=== PATIENT | female | born 1935 | race Caucasian/White ===

== ENCOUNTER 2017-01-13 21:41 | Emergency (ER) | payer MEDICARE, OTHER ==
[~2017-01-13] VITALS: Ht 162.6 cm; Wt 70.8 kg
[2017-01-13 22:40] LABS: BASO % 1 % (0-3); EOS # 0.1 x10^3/uL (0.0-0.7); EOS % 2 % (0-3); HEMATOCRIT 38.5 % (36.0-47.0); HEMOGLOBIN 13.4 g/dL (12.0-15.5); LYMPH # 1.4 x10^3/uL (1.0-4.8); LYMPH % 29 % (24-48); MEAN CORPUSCULAR HEMOGLOBIN 32 pg (25-35); MEAN CORPUSCULAR HGB CONC 35 g/dL (31-37); MEAN CORPUSCULAR VOLUME 90 fL (79-100); MONO # 0.4 x10^3/uL (0.0-1.1); MONO % 7 % (0-9); NEUT % 61 % (31-73); PLATELET COUNT 179 x10^3/uL (140-400); RED BLOOD COUNT 4.26 x10^6/uL (3.50-5.40); RED CELL DISTRIBUTION WIDTH 12.8 % (11.5-14.5); WHITE BLOOD COUNT 4.8 x10^3/uL (4.0-11.0)
[2017-01-13 23:00] LABS: ALBUMIN 3.7 g/dL (3.4-5.0); ALBUMIN/GLOBULIN RATIO 1.3 (1.0-1.7); CALCIUM 9.4 mg/dL (8.5-10.1); CREATININE 0.6 mg/dL (0.6-1.0); GFR 96.4; TOTAL BILIRUBIN 0.6 mg/dL (0.2-1.0); TOTAL PROTEIN 6.6 g/dL (6.4-8.2)
[2017-01-13 23:27] VITALS: BP 148/87
--- NOTE | 2017-01-13 23:35 | RAD ---
INDICATION: Leg pain COMPARISON: None. TECHNIQUE: Grayscale, color and doppler ultrasound images were obtained of the left lower extremity venous vasculature. LEFT: No thrombus identified in the common femoral vein, femoral vein, popliteal vein or visualized calf veins. IMPRESSION: 1. No thrombus identified in deep venous system of the left lower extremity. Electronically signed by: Mitch Jang MD (01/13/2017 11:31 PM) [facility]
--- NOTE | 2017-01-13 23:47 | PHYS DOC ---
Past History Past Medical History: Hypertension Alcohol Use: None Drug Use: None Adult General Chief Complaint Chief Complaint: HYPERTENSION HPI HPI Patient is a 81 year old female who presents with hypertension. The patient states she experienced palpitations this morning while walking to her car after taoism. She checked her blood pressure & it was elevated in the 160s systolic. She felt anxious & was worried that she might be having an SD so she took aspirin 162 mg & continued to check her blood pressure frequently throughout the day. She states she is compliant with losartan but prefers to take hydrochlorothiazide every other day rather than daily as prescribed by her doctor because her legs are infrequently swollen. She denies headache, vision changes, chest pain, shortness of breath, extremity numbness/weakness. She reports chronic left knee pain secondary to osteoarthritis & has been told that she probably needs joint replacement. She has been using voltaren cream which minimally helps. She thought she had some increased pain over the past few days , including posterior knee pain & calf pain. Denies swelling. She recently traveled by car from [place] to visit her daughter here. She states she is planning to stay here through the end of the year but doesn't have a doctor locally. Review of Systems Review of Systems Constitutional: Denies fever or chills Eyes: Denies change in visual acuity HENT: Denies nasal congestion or sore throat Respiratory: Denies cough or shortness of breath Cardiovascular: Reports palpitations, Denies chest pain or edema GI: Denies abdominal pain, nausea, vomiting, bloody stools or diarrhea : Denies dysuria or hematuria Musculoskeletal: Denies back pain, reports knee & calf pain. Integument: Denies rash or skin lesions Neurologic: Denies headache, focal weakness or sensory changes Allergies Allergies Allergies Coded Allergies Type Severity Reaction Last Updated Verified No Known Drug Allergies 01/13/17 No Physical Exam Physical Exam Constitutional: Well developed, well nourished, anxious HENT: Normocephalic, atraumatic, bilateral external ears normal, oropharynx moist, nose normal. Eyes: PERRLA, EOMI, conjunctiva normal, no discharge. Neck: supple, no stridor. Cardiovascular: RRR, no murmurs, no edema. Lungs & Thorax: LCTAB, no wheezing, no respiratory distress. Abdomen: soft, nontender, nondistended. Skin: Warm, dry, no erythema, no rash. Back: No tenderness. Extremities: LLE minimal calf tenderness without swelling, no focal bony knee tenderness, dp/pt 2+, sensation intact to foot. Neurologic: Alert and oriented X 3, CN2-12 grossly intact, symmetric strength/ sensation to upper & lower extremities, no focal deficits noted. Psychologic: anxious Current Patient Data Vital Signs Vital Signs Date Time Temp Pulse Resp B/P (MAP) Pulse Ox O2 Delivery O2 Flow Rate FiO2 01/13/17 23:27 148/87 (107) 01/13/17 21:45 98.0 74 20 99 Room Air Lab Results Laboratory Tests Test 01/13/17 22:20 White Blood Count 4.8 x10^3/uL (4.0-11.0) Red Blood Count 4.26 x10^6/uL (3.50-5.40) Hemoglobin 13.4 g/dL (12.0-15.5) Hematocrit 38.5 % (36.0-47.0) Mean Corpuscular Volume 90 fL (79-100) Mean Corpuscular Hemoglobin 32 pg (25-35) Mean Corpuscular Hemoglobin Concent 35 g/dL (31-37) Red Cell Distribution Width 12.8 % (11.5-14.5) Platelet Count 179 x10^3/uL (140-400) Neutrophils (%) (Auto) 61 % (31-73) Lymphocytes (%) (Auto) 29 % (24-48) Monocytes (%) (Auto) 7 % (0-9) Eosinophils (%) (Auto) 2 % (0-3) Basophils (%) (Auto) 1 % (0-3) Neutrophils # (Auto) 3.0 x10^3uL (1.8-7.7) Lymphocytes # (Auto) 1.4 x10^3/uL (1.0-4.8) Monocytes # (Auto) 0.4 x10^3/uL (0.0-1.1) Eosinophils # (Auto) 0.1 x10^3/uL (0.0-0.7) Basophils # (Auto) 0.0 x10^3/uL (0.0-0.2) Sodium Level 139 mmol/L (136-145) Potassium Level 4.0 mmol/L (3.5-5.1) Chloride Level 104 mmol/L (98-107) Carbon Dioxide Level 30 mmol/L (21-32) Anion Gap 5 (6-14) L Blood Urea Nitrogen 19 mg/dL (7-20) Creatinine 0.6 mg/dL (0.6-1.0) Estimated GFR (Cockcroft-Gault) 96.4 BUN/Creatinine Ratio 32 (6-20) H Glucose Level 111 mg/dL (70-99) H Calcium Level 9.4 mg/dL (8.5-10.1) Total Bilirubin 0.6 mg/dL (0.2-1.0) Aspartate Amino Transferase (AST) 25 U/L (15-37) Alanine Aminotransferase (ALT) 25 U/L (14-59) Alkaline Phosphatase 74 U/L (46-116) Troponin I Quantitative < 0.017 ng/mL (0-0.055) JY-Wso-K-Type Natriuretic Peptide 170 pg/mL (0-449) Total Protein 6.6 g/dL (6.4-8.2) Albumin 3.7 g/dL (3.4-5.0) Albumin/Globulin Ratio 1.3 (1.0-1.7) EKG EKG [] Radiology/Procedures Radiology/Procedures PROCEDURE: VENOUS LOWER EXTREMITY LEFT INDICATION: Leg pain COMPARISON: None. TECHNIQUE: Grayscale, color and doppler ultrasound images were obtained of the left lower extremity venous vasculature. LEFT: No thrombus identified in the common femoral vein, femoral vein, popliteal vein or visualized calf veins. IMPRESSION: 1. No thrombus identified in deep venous system of the left lower extremity. Electronically signed by: Mahesh Jang MD (01/13/2017 11:31 PM) [facility] DICTATED AND SIGNED BY: MAHESH JANG MD DATE: 01/13/17 2569 [] Course & Med Decision Making Course & Med Decision Making Pertinent Labs and Imaging studies reviewed. (See chart for details) The patient presents with elevated blood pressure. She is asymptomatic but had some chest palpitations about 12 hours ago. She has no complaints at this time but appears very anxious & is checking blood pressure frequently. It is elevated in 160s/70s. Obtained labs, EKG, venous US of LLE. No significant abnormality & her blood pressure improved to 148/87. She remained asymptomatic. Discussed at length with patient & her daughter. Would not recommend any acute changes in her meds at this time, but did encourage her to take meds exactly as prescribed including HCTZ which she has been taking every other day rather than daily. Not necessary to check blood pressure so frequently at home as I suspect this is increasing anxiety & therefore she is seeing higher blood pressure readings. Would only check if having symptoms of some sort, in which case would recommend seeing a doctor anyway. Could be helpful to check once daily or even every other day to document in a diary for PCP. Encouraged her to follow up with primary care within the next week for further evaluation; her daughter believes she can be seen by her own primary care. Come back for severe headache, chest pain, shortness of breath, focal neuro deficit, any otherwise worsening condition. Discharged home in stable condition. [] Dragon Disclaimer Dragon Disclaimer This chart was dictated in whole or in part using Voice Recognition software in a busy, high-work load, and often noisy Emergency Department environment. It may contain unintended and wholly unrecognized errors or omissions. Departure Departure: Impression: Primary Impression: Hypertension Disposition: 01 HOME, SELF-CARE Condition: STABLE Referrals: NON,STAFF (PCP) Patient Instructions: Hypertension, [id number] Additional Instructions: You were seen in the emergency department today for high blood pressure. Your tests here did not show any serious abnormality, & you do not have a blood clot in your leg. Please take all medications as prescribed, including daily hydrochlorothiazide. No need to check blood pressure frequently unless you are having severe headache or chest pain - in which case you need to see a doctor anyway. it would be okay to check maybe once a day or every other day in order to give your doctor a blood pressure diary. Please follow up with primary care within the next week. Come back for severe chest pain or shortness of breath, severe headache, any otherwise worsening condition. Problem Qualifiers Primary Impression: Hypertension Hypertension type: unspecified Qualified Codes: I10 - Essential (primary) hypertension VALENTINE JAUREGUI MD Jan 13, 2017 23:47
--- NOTE | 2017-01-14 01:56 | EKG ---
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
== END 2017-01-13 23:55 | disposition home or self-care (01) ==
LOC: ER 21:41
DX: I10 Essential (primary) hypertension (principal); G89.29 Other chronic pain
CPT/HCPCS: 36415; 80053; 83880; 84484; 85025; 93005; 93971; 99285-25

== ENCOUNTER 2020-03-02 16:10 | Emergency (ER) | payer MEDICARE, OTHER ==
[~2020-03-02] VITALS: Ht 162.6 cm; Wt 66.3 kg
[2020-03-02] MEDS ORDERED: ASPIRIN 325 MG TABLET PO ONE (16:30)
--- NOTE | 2020-03-02 16:42 | PHYS DOC ---
Past History Past Medical History: High Cholesterol, Hypertension Additional Past Medical Histor: DVT LLE Past Surgical History: Hysterectomy, Knee Replacement, Oophorectomy Smoking: Non-smoker Alcohol Use: Occasionally Drug Use: None General Adult EDM: Chief Complaint: CHEST WALL PAIN HPI: HPI: Patient is an 84 year old female who presents with chest wall pain. She was talking on the phone at noon today when she experienced 1 min of a quick centrally located chest pain. Pain is reported a 1-2/10, no radiation. She applied voltaren topical gel and took 325mg of tylenol right away. Pain did not return, not currently experiencing pain. She has had pains like this before but they are normally more peripherally located and occur while she is active. She does report a history of balance or dizziness that occurs when she stands up too quickly, but that did not occur with todays chest pain. No history of falls or loss of consciousness. Full cardiac workup in [place], [place] with EKG, echo, stress test showing no abnormalities. History of LLE blood clot 2 years ago, was put on blood thinner for 1 month. Review of Systems: Review of Systems: Constitutional: Denies fever or chills Eyes: Denies redness or eye pain HENT: Denies nasal congestion or sore throat Respiratory: Denies cough or shortness of breath Cardiovascular: Denies palpitations, Reports central chest wall pain GI: Denies abdominal pain, nausea, or vomiting : Denies dysuria or hematuria Musculoskeletal: Denies back pain or joint pain Integument: Denies rash or skin lesions Neurologic: Denies headache, focal weakness or sensory changes Complete systems were reviewed and found to be within normal limits, except as documented in this note. Current Medications: Current Meds: Current Medications Medications (Trade) Dose Ordered Sig/[facility] Start Time Stop Time Status Last Admin Dose Admin Aspirin (Neo Aspirin) 325 mg 1X ONCE 03/02/20 16:30 03/02/20 16:31 DC Allergies: Allergies: Allergies Coded Allergies Type Severity Reaction Last Updated Verified No Known Drug Allergies 03/02/20 No Physical Exam: PE: Constitutional: Well developed, well nourished, no acute distress, non-toxic appearance HENT: Normocephalic, atraumatic Eyes: PERRL, EOMI, conjunctiva normal, no discharge Neck: Normal range of motion, no tenderness, supple Cardiovascular: No tenderness upon palpation of the chest wall, capillary refill 2 sec Lungs & Thorax: No respiratory distress, equal chest rise and fall Abdomen: Soft, no tenderness Skin: Warm, dry, no erythema, no rash Back: No tenderness, no CVA tenderness Extremities: No tenderness, ROM intact, no edema Neurologic: Alert and oriented X 3, normal motor function, normal sensory function, no focal deficits noted Psychologic: Affect normal, judgment normal Current Patient Data: Vital Signs: Vital Signs Date Time Temp Pulse Resp B/P (MAP) Pulse Ox O2 Delivery O2 Flow Rate FiO2 03/02/20 16:19 98.2 70 17 149/66 (93) 97 Room Air EKG: EKG: @16:20, normal sinus rhythm, no ST segment elevations, QRS 80ms, QT/QTc 392ms/431ms Radiology/Procedures: Radiology/Procedures: PROCEDURE: PORTABLE CHEST 1V PORTABLE CHEST 1V History: Reason: chest pain / Spl. Instructions: / History: Comparison: None. Findings: Linear right basilar opacity, likely atelectasis. No consolidation or pleural effusion. Normal heart size. No pneumothorax. Impression: 1. Linear right basilar opacity, likely atelectasis. Electronically signed by: Lambert Rodrigues DO (03/02/2020 4:49 PM) [facility] Heart Score: HEART Score for Chest Pain: HEART Score for Chest Pain Response (Comments) Value History Slighlty/Non-Suspicious 0 ECG Normal 0 Age > 65 2 Risk Factors 1 or 2 Risk Factors 1 Troponin < Normal Limit 0 Total 3 Risk Factors: Risk Factors: DM, Current or recent (<one month) smoker, HTN, HLP, family history of CAD, obesity. Risk Scores: Score 0 - 3: 2.5% MACE over next 6 weeks - Discharge Home Score 4 - 6: 20.3% MACE over next 6 weeks - Admit for Clinical Observation Score 7 - 10: 72.7% MACE over next 6 weeks - Early Invasive Strategies Course & Med Decision Making: Course & Med Decision Making Pertinent Labs and Imaging studies reviewed. (See chart for details) Patient is an 84 year old female presenting with chest wall pain. Pain was very quick with resolution following 325mg tylenol and application of voltaren gel. Pain has not returned and she is currently comfortable. She has had an extensive cardiac workup with EKG, echo, and stress test performed 1-2 years prior with no abnormalities found. Low suspicion of cardiac pathology, likely musculoskeletal pain. Previous history of LLE DVT. EKG and chest xray ordered. Labs pending. Timed troponins performed at 16:40 and 18:10. D-dimer pending. Dragon Disclaimer: Arelyon Disclaimer: This electronic medical record was generated, in whole or in part, using a voice recognition dictation system. Departure Departure: Impression: Primary Impression: Chest pain Qualified Codes: R07.9 - Chest pain, unspecified Disposition: 01 DC HOME SELF CARE/HOMELESS Condition: STABLE Referrals: FELICIANO SCHULZ MD (PCP) HIREN HESS MD Patient Instructions: Chest Pain (Nonspecific), [id number] MADONNA FITCH DO Mar 02, 2020 16:42
[2020-03-02 16:51] LABS: BASO % 1 % (0-3); EOS # 0.1 x10^3/uL (0.0-0.7); EOS % 3 % (0-3); HEMATOCRIT 40.8 % (36.0-47.0); HEMOGLOBIN 13.6 g/dL (12.0-15.5); LYMPH % 22 % (24-48); MEAN CORPUSCULAR HEMOGLOBIN 31 pg (25-35); MEAN CORPUSCULAR HGB CONC 33 g/dL (31-37); MEAN CORPUSCULAR VOLUME 94 fL (79-100); MONO # 0.3 x10^3/uL (0.0-1.1); MONO % 7 % (0-9); NEUT % 68 % (31-73); PLATELET COUNT 178 x10^3/uL (140-400); RED BLOOD COUNT 4.34 x10^6/uL (3.50-5.40); RED CELL DISTRIBUTION WIDTH 12.9 % (11.5-14.5); WHITE BLOOD COUNT 4.5 x10^3/uL (4.0-11.0)
--- NOTE | 2020-03-02 16:52 | RAD ---
PORTABLE CHEST 1V History: Reason: chest pain / Spl. Instructions: / History: Comparison: None. Findings: Linear right basilar opacity, likely atelectasis. No consolidation or pleural effusion. Normal heart size. No pneumothorax. Impression: 1. Linear right basilar opacity, likely atelectasis. Electronically signed by: Lambert Rodrigues DO (03/02/2020 4:49 PM) [facility]
[2020-03-02 17:02] LABS: CALCIUM 9.9 mg/dL (8.5-10.1); CREATININE 0.8 mg/dL (0.6-1.0); GFR 68.7; POTASSIUM 3.5 mmol/L (3.5-5.1)
[2020-03-02 17:18] LABS: ALBUMIN 3.8 g/dL (3.4-5.0); ALBUMIN/GLOBULIN RATIO 1.1 (1.0-1.7); MAGNESIUM 2.1 mg/dL (1.8-2.4); TOTAL PROTEIN 7.3 g/dL (6.4-8.2)
--- NOTE | 2020-03-02 17:49 | EKG ---
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
[2020-03-02 19:10] VITALS: BP 122/69
== END 2020-03-02 19:10 | disposition home or self-care (01) ==
LOC: ER 16:10
DX: R07.89 Other chest pain (principal); E78.00 Pure hypercholesterolemia, unspecified; I10 Essential (primary) hypertension; Z86.718 Personal history of other venous thrombosis and embolism
CPT/HCPCS: 36415; 71045; 80053; 82553; 83690; 83735; 83880; 84484; 85025; 85379; 85610; 85730; 93005; 99285